=== PATIENT | male | born 1995 | race Caucasian/White ===

== ENCOUNTER 2017-09-17 09:58 | Emergency (ER) | payer OTHER ==
[2017-09-17] MEDS ORDERED: IBUPROFEN 400 MG TAB ONE (10:48)
[2017-09-17 10:53] LABS: Absolute Lymphocytes (CBC) 1.4 K/uL (0.7-4.9); Absolute Monocytes 0.9 K/uL (0.1-1.3); Basophils % 0.6 % (0-1.3); Eosinophils % 0.2 % (0-4.4); Hematocrit 43.1 % (39.6-49.0); Lymphocytes % 18.6 % (15.3-44.8); MCH 28.6 pg (27.0-35.0); MCV 85.6 fL (80-100); MPV 8.7 fL (7.6-11.3); Monocytes % 12.3 % (3.3-12.3); RBC Red Blood Cell Count 5.04 M/uL (4.33-5.43)
--- NOTE | 2017-09-17 11:21 | ER ---
Nurse's Notes [facility] Name: Stanislaw Blanco Age: 21 yrs Sex: Male : 1995 Arrival Date: 09/17/2017 Time: 10:00 Bed 12 Private MD: Diagnosis: Acute tonsillitis Presentation: 09/17 10:21 Presenting complaint: Patient states: productive cough and sore throat x 2-3 days ago. aa5 Transition of care: patient was not received from another setting of care. Onset of symptoms was September 2017. Care prior to arrival: None. 10:21 Method Of Arrival: Ambulatory aa5 10:21 Acuity: DARINEL 4 aa5 10:21 Initial Sepsis Screen: Does the patient meet any 2 criteria? HR > 90 bpm. aa5 10:21 Initial Sepsis Screen: Does the patient have a suspected source of infection? No. aa5 Patient's initial sepsis screen is negative. Historical: - Allergies: 10:22 No Known Allergies; aa5 - PMHx: 10:22 None; aa5 - PSHx: 10:22 None; aa5 - Immunization history:: Adult Immunizations up to date. - Social history:: Smoking status: Patient/guardian denies using tobacco. Screenin:30 Abuse screen: Denies threats or abuse. Nutritional screening: No deficits noted. aa5 Tuberculosis screening: No symptoms or risk factors identified. Fall Risk None identified. Assessment: 10:30 General: Appears comfortable, Behavior is calm, cooperative. Pain: Complains of pain in aa5 throat. Neuro: Level of Consciousness is awake, alert, obeys commands, Oriented to person, place, time, situation. Cardiovascular: Heart tones S1 S2 present Rhythm is regular. Respiratory: Airway is patent Respiratory effort is even, unlabored, Respiratory pattern is regular, symmetrical, Breath sounds are clear bilaterally. GI: No signs and/or symptoms were reported involving the gastrointestinal system. : No signs and/or symptoms were reported regarding the genitourinary system. EENT: Throat is reddened has enlarged tonsils. Derm: Skin is pink, warm \\T\\ dry. Petechia noted to periorbital area. Pt states "I coughed so hard today and I got this rash on my face afterwards". Musculoskeletal: Range of motion: intact in all extremities. Vital Signs: 10:21 BP 132 / 69; Pulse 102; Resp 18 S; Temp 100.2(TE); Pulse Ox 98% on R/A; Weight 117.93 aa5 kg (R); Height 6 ft. 0 in. (182.88 cm) (R); 11:55 Temp 99.3(A); ss 10:21 Body Mass Index 35.26 (117.93 kg, 182.88 cm) aa5 ED Course: 10:00 Patient arrived in ED. sb2 10:21 Triage completed. aa5 10:21 Arm band placed on. aa5 10:21 Patient has correct armband on for positive identification. Adult w/ patient. aa5 10:22 Anila Ramos F[facility]C [facility]. kb 10:22 Tawanda Mullins MD is Attending Physician. kb 10:45 Initial lab(s) drawn, by ok, sent to lab. Flu and/or RSV swab sent to lab. Strep swab aa5 sent to lab. 10:55 Di Bonilla, RN is Primary Nurse. aa5 11:55 No provider procedures requiring assistance completed. aa5 11:56 Patient did not have IV access during this emergency room visit. ss Administered Medications: 10:40 Drug: Ibuprofen 800 mg Route: PO; aa5 11:55 Follow up: Response: Temperature is decreased ss 11:55 Drug: Augmentin 875 mg Route: PO; ss 11:55 Follow up: Response: Medication administered at discharge. ss Outcome: 11:21 Discharge ordered by . kb 11:56 Discharged to home ambulatory, with family. ss 11:56 Condition: good 11:56 Discharge instructions given to patient, family, Instructed on discharge instructions, follow up and referral plans. medication usage, Demonstrated understanding of instructions, follow-up care, medications, Prescriptions given X 1. 11:59 Patient left the ED. ss Signatures: Anila Ramos FNP-C FNP-Di Call, RN RN aa5 Liz Guerrero RN RN Eileen Iniguez sb2
--- NOTE | 2017-09-17 11:21 | EDPHYS ---
Physician Documentation [facility] Name: Stanislaw Blanco Age: 21 yrs Sex: Male : 1995 Arrival Date: 09/17/2017 Time: 10:00 Bed 12 Private MD: ED Physician Tawanda Mullins HPI: 09/17 10:48 This 21 yrs old Male presents to ER via Ambulatory with complaints of Rash. kb 10:48 The patient presents with sore throat. The patient describes throat pain as constant. kb Onset: The symptoms/episode began/occurred yesterday. Severity of symptoms: At their worst the symptoms were moderate, in the emergency department the symptoms are unchanged. Modifying factors: The symptoms are alleviated by nothing, the symptoms are aggravated by swallowing, Patient's oral intake status: good Denies contact with similarly ill indivduals. Associated signs and symptoms: Pertinent positives: fever, Sore throat Pertinent negatives chest pain, chills, diarrhea, dysphagia, earache, flu-like symptoms, headache, nausea, rhinorrhea, shortness of breath, vomiting. The patient has not experienced similar symptoms in the past. The patient has not recently seen a physician. Pt c/o sore throat, fever, and cough that started yesterday. States he coughed so much this morning that it made him vomit and then he had a rash around his eyes afterwards. Historical: - Allergies: 10:22 No Known Allergies; aa5 - PMHx: 10:22 None; aa5 - PSHx: 10:22 None; aa5 - Immunization history:: Adult Immunizations up to date. - Social history:: Smoking status: Patient/guardian denies using tobacco. ROS: 10:46 Constitutional: Negative for fever, chills, and weight loss, Cardiovascular: Negative kb for chest pain, palpitations, and edema, Back: Negative for injury and pain, MS/Extremity: Negative for injury and deformity, Neuro: Negative for headache, weakness, numbness, tingling, and seizure. 10:46 ENT: Positive for sore throat. 10:46 Respiratory: Positive for cough, Negative for dyspnea on exertion, hemoptysis, orthopnea, pleurisy, shortness of breath, sputum production, wheezing. 10:46 Abdomen/GI: Positive for vomiting, Negative for abdominal pain, nausea, diarrhea, constipation, abdominal cramps, abdominal distension, anorexia. 10:46 Skin: Positive for rash, of the right eye and left eye. Exam: 10:46 Constitutional: This is a well developed, well nourished patient who is awake, alert, kb and in no acute distress. Head/Face: Normocephalic, atraumatic. Neck: Trachea midline, no thyromegaly or masses palpated, and no cervical lymphadenopathy. Supple, full range of motion without nuchal rigidity, or vertebral point tenderness. No Meningismus. Chest/axilla: Normal chest wall appearance and motion. Nontender with no deformity. No lesions are appreciated. Cardiovascular: Regular rate and rhythm with a normal S1 and S2. No gallops, murmurs, or rubs. Normal PMI, no JVD. No pulse deficits. Respiratory: Lungs have equal breath sounds bilaterally, clear to auscultation and percussion. No rales, rhonchi or wheezes noted. No increased work of breathing, no retractions or nasal flaring. Abdomen/GI: Soft, non-tender, with normal bowel sounds. No distension or tympany. No guarding or rebound. No evidence of tenderness throughout. MS/ Extremity: Pulses equal, no cyanosis. Neurovascular intact. Full, normal range of motion. Neuro: Awake and alert, GCS 15, oriented to person, place, time, and situation. Cranial nerves II-XII grossly intact. Motor strength 5/5 in all extremities. Sensory grossly intact. Cerebellar exam normal. Normal gait. 10:46 ENT: Posterior pharynx: Airway: normal, no evidence of obstruction, Tonsils: bilaterally enlarged, with erythema, Uvula: normal, midline, swelling, that is moderate, erythema, that is moderate, exudate, is not appreciated. 10:46 Skin: rash can be described as petechiae, on the left eye and right eye. Vital Signs: 10:21 BP 132 / 69; Pulse 102; Resp 18 S; Temp 100.2(TE); Pulse Ox 98% on R/A; Weight 117.93 aa5 kg (R); Height 6 ft. 0 in. (182.88 cm) (R); 11:55 Temp 99.3(A); ss 10:21 Body Mass Index 35.26 (117.93 kg, 182.88 cm) aa5 MDM: 10:22 Patient medically screened. kb 10:41 Data reviewed: vital signs, nurses notes. Data interpreted: Pulse oximetry: on room air kb is 98 %. Interpretation: normal. 11:19 Counseling: I had a detailed discussion with the patient and/or guardian regarding: the kb historical points, exam findings, and any diagnostic results supporting the discharge/admit diagnosis, lab results, the need for outpatient follow up, a family practitioner, to return to the emergency department if symptoms worsen or persist or if there are any questions or concerns that arise at home. 09/17 10:29 Order name: Strep; Complete Time: 11:13 kb 09/17 10:33 Order name: Flu; Complete Time: 11:13 kb 09/17 10:33 Order name: CBC with Diff; Complete Time: 10:59 kb 09/17 11:08 Order name: Throat Culture EDMS Administered Medications: 10:40 Drug: Ibuprofen 800 mg Route: PO; aa5 11:55 Follow up: Response: Temperature is decreased ss 11:55 Drug: Augmentin 875 mg Route: PO; ss 11:55 Follow up: Response: Medication administered at discharge. ss Disposition: 14:04 Co-signature as Attending Physician, Tawanda Mullins MD. rn Disposition: 09/17/17 11:21 Discharged to Home. Impression: Acute tonsillitis. - Condition is Stable. - Discharge Instructions: Tonsillitis, [id number]. - Prescriptions for Augmentin 875- 125 mg Oral Tablet - take 1 tablet by ORAL route every 12 hours for 7 days; 14 tablet. - Medication Reconciliation Form, Thank You Letter, Antibiotic Education, Prescription Opioid Use form. - Follow up: Emergency Department; When: As needed; Reason: Worsening of condition. Follow up: Private Physician; When: 2 - 3 days; Reason: Recheck today's complaints, Continuance of care, Re-evaluation by your physician. Signatures: Dispatcher [employer] EDMS Anila Ramos, BERRY GROWER-C BERRY GROWER-Tawanda Saavedra MD MD rn Calderon, Audri, RN RN aa5 Liz Guerrero RN RN ss Corrections: (The following items were deleted from the chart) 11:59 11:21 09/17/2017 11:21 Discharged to Home. Impression: Acute tonsillitis. Condition is ss Stable. Forms are Medication Reconciliation Form, Thank You Letter, Antibiotic Education, Prescription Opioid Use. Follow up: Emergency Department; When: As needed; Reason: Worsening of condition. Follow up: Private Physician; When: 2 - 3 days; Reason: Recheck today's complaints, Continuance of care, Re-evaluation by your physician. kb
[2017-09-17] MEDS ORDERED: AMOX/K CLAV 875 MG TAB ONE (11:50)
== END 2017-09-17 11:59 | disposition home or self-care (01) ==
LOC: ER 09:58
DX: J03.90 Acute tonsillitis, unspecified (principal)
CPT/HCPCS: 36415; 85025; 87070; 87081; 87804; 99283